=== PATIENT | male | born 1955 | race Caucasian/White ===

== ENCOUNTER 2023-07-22 07:23 | Day surgery (SDC) | payer OTHER ==
[2023-07-22] MEDS: Lactated Ringers 1,000 ML IV SCH (07:39)
[2023-07-22] MEDS ORDERED: Propofol 200 MG/20 ML SDV ONE (08:00)
[2023-07-22] MEDS ORDERED: fentaNYL 50 MCG/ML SDV ONE (08:00)
[2023-07-22] MEDS ORDERED: Ketamine 200 MG/20 ML MDV ONE (08:00)
== END 2023-07-22 09:05 | disposition home or self-care (01) ==
LOC: CC.SDS 07:23
PROVIDERS: ATTEND Family Medicine
DX: Z12.11 Encounter for screening for malignant neoplasm of colon (principal); D12.2 Benign neoplasm of ascending colon; D12.5 Benign neoplasm of sigmoid colon; K57.30 Diverticulosis of large intestine without perforation or abscess without bleeding; Z86.010 Personal history of colon polyps; I10 Essential (primary) hypertension; E11.9 Type 2 diabetes mellitus without complications; E78.5 Hyperlipidemia, unspecified; Z79.82 Long term (current) use of aspirin; Z79.84 Long term (current) use of oral hypoglycemic drugs; Z79.899 Other long term (current) drug therapy
CPT/HCPCS: 00811; J2704; J3010; J3490; J7120